=== PATIENT | male | born 1935 | race Caucasian/White ===

== ENCOUNTER → 2020-02-09 09:41 | Outpatient (REF) | payer MEDICARE, SELFPAY | LOC: ANHLAB 09:41 | PROVIDERS: Visit Provider Nurse Practitioner | DX: C44.629 Squamous cell carcinoma of skin of left upper limb, including shoulder (principal) | CPT/HCPCS: 88305; 88331 ==

== ENCOUNTER → 2021-02-14 09:55 | Outpatient (REF) | payer MEDICARE, SELFPAY | LOC: ANHLAB 09:55 | PROVIDERS: Visit Provider Nurse Practitioner | DX: C44.01 Basal cell carcinoma of skin of lip (principal) | CPT/HCPCS: 88305; 88331 ==